=== PATIENT | female | born 1970 | race African-American/Black ===

== ENCOUNTER 2017-02-18 11:47 | Emergency (ER) | payer OTHER ==
--- NOTE | ~2017-02-18 | US67 ---
[facility] A Service of [facility] & [facility] RADIOLOGY TEXT RESULTS PATIENT: AMARI PELAEZ LOCATION: [facility] : 74 UNIT #: [id number] AGE: [address]: Loni Martinez SEX: F ORDER DR: [id number] [facility] [address] [place], [place] [address] [id number] E MR#: [id number] Acc #: [id number] NAME: AMARI PELAEZ : 1970 SEX: F STUDY DATE/TIME: 02/18/2017 15:09 UNIT: [facility] ROOM: STUDY DESCRIPTION: US Gallbladder Attending Physician: Loni Martinez P.A.-C. Ordering Physician: Loni Martinez P.A.-C. Primary Care Physician: [facility] MEDICAL IMAGING REPORT This report is preliminary unless electronic signature is present EXAM Gallbladder ultrasound, 02/18 HISTORY Epigastric pain and nausea with vomiting since last night. FINDINGS Sonographic evaluation was performed of the right upper quadrant in multiple planes. No comparison. Pancreas is normal. The liver parenchyma is homogeneous and normal. There is no liver mass. The right kidney is morphologically normal and non-obstructed. Gallbladder is normal. There is no gallbladder wall thickening, and there are no gallstones. Common duct is normal at 4.0 mm internal diameter. There is no free fluid. IMPRESSION Normal right upper quadrant ultrasound. Dictated by... Randall De Los Santos Jr., M.D. THIS IS AN ELECTRONICALLY VERIFIED REPORT Randall De Los Santos Jr., M.D. at 02/18/2017 8:49 PM INDIO/denisa TD: 02/18/2017 16:49 JOB #: [id number] MEDICAL IMAGING REPORT Page 1 of 1 COPY
[2017-02-18 12:25] LABS: URINE SOURCE CLEAN CATCH
[2017-02-18 12:37] LABS: BASOPHIL% 0.9 % (0-2.5); EOSINOPHIL# 0.1 X10e3 (0-0.7); EOSINOPHIL% 2.1 % (0.0-7.0); HEMATOCRIT 32.1 % (35.0-45.0); HEMOGLOBIN 10.2 gm/dL (12.0-16.0); LYMPHOCYTE# 2.1 X10e3 (1.0-3.5); LYMPHOCYTE% 38.1 % (17.0-45.0); MEAN CELL VOLUME 77.4 FL (83-96); MEAN CORPUSCULAR HEMOGLOBIN 24.7 PG (28-34); MEAN CORPUSCULAR HGB CONC 31.9 g/dL (30-36); MEAN PLATELET VOLUME 7.3 FL (6.5-11.5); MONOCYTE# 0.6 X10e3 (0-1.0); MONOCYTE% 10.3 % (3.0-12.0); NEUTROPHIL# 2.6 X10e3 (1.5-7.1); NEUTROPHIL% 48.6 % (40-75); PLATELET COUNT 359 X10e3 (140-420); RED BLOOD COUNT 4.15 X10e (3.90-5.30); WHITE BLOOD COUNT 5.4 X10e3 (4.0-10.5)
[2017-02-18 12:38] LABS: DIFF IND NO; URINE APPEARANCE CLEAR; URINE BILIRUBIN NEG (NEG); URINE BLOOD NEG (NEG); URINE COLOR YELLOW; URINE GLUCOSE NEG (NEG); URINE KETONE NEG (NEG); URINE LEUKOCYTE ESTERASE NEG (NEG); URINE NITRATE NEG (NEG); URINE PH 6.5 (5-8); URINE PROTEIN NEG (NEG); URINE SPECIFIC GRAVITY 1.021 (1.003-1.035)
[2017-02-18 12:41] LABS: CULTURE INDICATED? NO
[2017-02-18 13:02] LABS: BILIRUBIN, DIRECT 0.1 mg/dL (0.0-0.2); BILIRUBIN,INDIRECT 0.3 mg/dL (0.0-0.9); BILIRUBIN,TOTAL 0.4 mg/dL (0.2-2.0); CREATININE SERUM 0.6 mg/dL (0.6-1.4); GLOM FILT RATE Estimated 128.5 mL/min (>60); POTASSIUM 3.7 mmol/L (3.5-5.1); PROTEIN TOTAL SERUM 7.3 g/dL (6.0-8.3)
== END 2017-02-18 16:00 | disposition home or self-care (01) ==
LOC: CED 11:47
DX: K29.00 Acute gastritis without bleeding (principal); I10 Essential (primary) hypertension; E78.5 Hyperlipidemia, unspecified; F17.200 Nicotine dependence, unspecified, uncomplicated; Z90.710 Acquired absence of both cervix and uterus
CPT/HCPCS: 76705; 80048; 80076; 81003; 83690; 85025; 86677; 96361; 96374; 96375; 99284; J1885; J2405

== ENCOUNTER → 2017-03-06 | Emergency (ER) | payer OTHER ==
[2017-03-06 17:48] LABS: BASOPHIL# 0.1 X10e3 (0-0.3); BASOPHIL% 0.7 % (0-2.5); EOSINOPHIL% 0.2 % (0.0-7.0); HEMATOCRIT 34.3 % (35.0-45.0); LYMPHOCYTE# 1.8 X10e3 (1.0-3.5); LYMPHOCYTE% 19.8 % (17.0-45.0); MEAN CELL VOLUME 75.7 FL (83-96); MEAN CORPUSCULAR HEMOGLOBIN 24.3 PG (28-34); MEAN CORPUSCULAR HGB CONC 32.1 g/dL (30-36); MEAN PLATELET VOLUME 7.2 FL (6.5-11.5); MONOCYTE# 0.6 X10e3 (0-1.0); NEUTROPHIL# 6.5 X10e3 (1.5-7.1); NEUTROPHIL% 72.3 % (40-75); PLATELET COUNT 424 X10e3 (140-420); RED BLOOD COUNT 4.53 X10e (3.90-5.30)
[2017-03-06 17:50] LABS: DIFF IND NO
[2017-03-06 18:12] LABS: ALBUMIN SERUM 4.7 g/dL (3.5-5.0); ALKALINE PHOSPHATASE 60 U/L (32-92); ALT (SGPT) 13 U/L (10-40); AST (SGOT) 17 U/L (10-42); BILIRUBIN,TOTAL 0.6 mg/dL (0.2-2.0); BLOOD UREA NITROGEN 14 mg/dL (9-23); CALCIUM SERUM 9.3 mg/dL (8.4-10.2); CARBON DIOXIDE 23 mmol/L (22-31); CHLORIDE 102 mmol/L (100-111); CREATININE SERUM 0.8 mg/dL (0.6-1.4); GLUCOSE FASTING 126 mg/dL (70-110); LIPASE 14 U/L (22-51); POTASSIUM 3.3 mmol/L (3.5-5.1); PROTEIN TOTAL SERUM 8.1 g/dL (6.0-8.3); SODIUM 135 mmol/L (135-145)
[2017-03-06 18:20] LABS: BILIRUBIN, DIRECT <0.1 mg/dL (0.0-0.2); BILIRUBIN,INDIRECT 0.5 mg/dL (0.0-0.9)
== END | disposition left against medical advice (07) ==
LOC: CED 17:06
DX: Z53.21 Procedure and treatment not carried out due to patient leaving prior to being seen by health care provider (principal)
CPT/HCPCS: 80048; 80076; 83690; 85025